=== PATIENT | male | born 1995 | race Caucasian/White ===

== ENCOUNTER 2016-04-21 17:09 | Emergency (ER) | payer SELFPAY ==
[2016-04-21 17:21] VITALS: BP 145/93
[2016-04-21] MEDS ORDERED: Fluorescein Sodium TOPICAL* 1 MG TEST ONE (17:25)
[2016-04-21] MEDS ORDERED: Tetracaine 0.5% OPTH.SOL 4 ML* 1 DROP BTL ONE (17:25)
[2016-04-21] MEDS ORDERED: Eye Irrigation Solution 30 ML BOTTLE ONE (17:25)
--- NOTE | 2016-04-23 11:40 | UC ---
Eye Complaint HPI - HPI Summary HPI Summary: Patient found fiberglass grinder shavings in his left eye 1 days ago, eye is irritated - History of Current Complaint Chief Complaint: UCEye Stated Complaint: LEFT EYE INJURY WC Time Seen by Provider: 04/21/16 17:23 Hx Obtained From: Patient Onset/Duration: Sudden Onset, Lasting Days - 1 Timing: Constant Severity Initially: Mild Severity Currently: Mild Pain Intensity: 0 Pain Scale Used: 0-10 Numeric Location of Injury: Sclera Character: Foreign Body Sensation Aggravating Factor(s): Light Alleviating Factor(s): Nothing Associated Signs And Symptoms: Positive: Drainage (Clear) - Risk Factors Penetrating Injury Risk Factor: Grinding Globe Rupture Risk Factors: Negative Acute Glaucoma Risk Factors: Negative Optic Artery Occlusion Risk Factors: Negative - Allergies/Home Medications Allergies/Adverse Reactions: Allergies Allergy/AdvReac Type Severity Reaction Status Date / Time No Known Allergies Allergy Verified 04/21/16 17:21 PMH/Surg Hx/FS Hx/Imm Hx Previously Healthy: Yes - Surgical History Surgical History: None Surgery Procedure, Year, and Place: T&A - Family History Known Family History: Positive: None Negative: Cardiac Disease, Hypertension - Social History Alcohol Use: None Substance Use Type: None Smoking Status (MU): Never Smoked Tobacco - Immunization History Most Recent Tetanus Shot: 2009 Vaccination Up to Date: Yes Review of Systems Constitutional: Negative Skin: Negative Eyes: Drainage - clear, Eye Redness ENT: Negative Respiratory: Negative Cardiovascular: Negative Gastrointestinal: Negative Genitourinary: Negative Motor: Negative Neurovascular: Negative Musculoskeletal: Negative Neurological: Negative Psychological: Negative All Other Systems Reviewed And Are Negative: Yes Physical Exam Triage Information Reviewed: Yes Appearance: Well-Nourished, Ill-Appearing, Pain Distress Vital Signs: Initial Vital Signs Temp 99.6 F 04/21/16 17:18 Pulse 94 04/21/16 17:18 Resp 14 04/21/16 17:18 BP 145/93 04/21/16 17:18 Pulse Ox 100 04/21/16 17:18 Vital Signs Reviewed: Yes Eye Exam: Normal Eyes: Positive: Other: - sclera is inflammed, visible shavings in eye ENT Exam: Normal ENT: Positive: Normal ENT inspection, Hearing grossly normal, Pharynx normal, TMs normal Dental Exam: Normal Neck exam: Normal Neck: Positive: Supple, Nontender, No Lymphadenopathy Respiratory Exam: Normal Respiratory: Positive: Chest non-tender, Lungs clear, Normal breath sounds Cardiovascular Exam: Normal Cardiovascular: Positive: RRR, No Murmur, Pulses Normal Abdominal Exam: Normal Abdomen Description: Positive: Nontender, No Organomegaly, Soft Bowel Sounds: Positive: Present Musculoskeletal Exam: Normal Musculoskeletal: Positive: Strength Intact, ROM Intact, No Edema Neurological Exam: Normal Neurological: Positive: Alert, Muscle Tone Normal Psychological Exam: Normal Skin Exam: Normal Eye Complaint Course/Dx - Course Course Of Treatment: hx obtained, exam preformed, visual acuity normal, tetracaine appied to eye, eye flushed, flourescene noted, multiple abraisions on cornea, 3 peices of grinding noted, able to remove two peices without difficulty with needle, third is embedded. attempt made without removal. erythromycin cream prescribed. and patch placed over eye for comfort, recommend and referred to follow up with Dr Maloney tomorrow morning. - Differential Dx/Diagnosis Differential Diagnosis/HQI/PQRI: Conjunctivitis, Corneal Abrasion, Foreign Body , Keratitis, Penetrating Injury, Periorbital Cellulitis, Orbital Cellulitis Provider Diagnoses: FB in left eye. corneal abraision Discharge - Discharge Plan Condition: Stable Disposition: HOME Prescriptions: Erythromycin OPHTH.OINT* [Ilotycin OPHTH.OINT*] 1 applic LEFT EYE TID #1 tube Patient Education Materials: Eye Foreign Body (ED) Forms: *Work Release Referrals: Milena Way MD [Primary Care Provider] - Milagro Maloney MD [Medical Doctor] - Additional Instructions: Please follow up with Dr Maloney in the morning. Ibuprofen for pain, use the antibiotic cream to prevent infection. I removed part of the metal. but there is still a piece in the eye. Wear the eye patch for comfort.
== END 2016-04-21 18:07 | disposition home or self-care (01) ==
LOC: UCCORT 17:09
DX: T15.02XA Foreign body in cornea, left eye, initial encounter (principal); W31.89XA Contact with other specified machinery, initial encounter; Y93.89 Activity, other specified; Y92.9 Unspecified place or not applicable
CPT/HCPCS: 65220; 99212; A9270-GY; G0463